=== PATIENT | male | born 1960 | race Caucasian/White ===

== ENCOUNTER 2017-03-13 13:16 | Emergency (ER) | payer SELFPAY ==
[~2017-03-13] VITALS: Ht 172.7 cm; Wt 93.2 kg
[2017-03-13] MEDS ORDERED: METF500T13 (13:32)
[2017-03-13] MEDS ORDERED: PRED20TA PO (14:35)
[2017-03-13] MEDS ORDERED: TRIA1OI TOP (14:35)
[2017-03-13 14:47] VITALS: BP 140/90
== END 2017-03-13 14:47 | disposition home or self-care (01) ==
LOC: M ED 13:16
DX: L30.1 Dyshidrosis [pompholyx] (principal); E11.9 Type 2 diabetes mellitus without complications; F17.200 Nicotine dependence, unspecified, uncomplicated; Z88.0 Allergy status to penicillin; Z79.84 Long term (current) use of oral hypoglycemic drugs

== ENCOUNTER 2017-11-11 12:55 | Emergency (ER) | payer OTHER, SELFPAY | END 2017-11-11 14:25 | disposition left against medical advice (07) | LOC: M ED 12:55 | DX: Z53.21 Procedure and treatment not carried out due to patient leaving prior to being seen by health care provider (principal) ==

== ENCOUNTER 2017-11-12 12:29 | Emergency (ER) | payer OTHER | END 2017-11-12 12:59 | disposition home or self-care (01) | LOC: M ED 12:29 | DX: E11.9 Type 2 diabetes mellitus without complications (principal); F17.200 Nicotine dependence, unspecified, uncomplicated; Z79.84 Long term (current) use of oral hypoglycemic drugs; Z88.0 Allergy status to penicillin | CPT/HCPCS: 99282 ==

== ENCOUNTER → 2017-12-01 | Outpatient (REF) | payer OTHER ==
[2017-12-01 12:02] LABS: BASO % 0.3 % (0.0-1.0); EOS # 0.1 10^3/uL (0.0-0.50); EOS % 1.9 % (0.0-3.0); HEMOGLOBIN 14.7 g/dl (13.5-17.5); IMMATURE GRANULOCYTE % 0.2 % (0-3.0); LYMPH # 1.5 10^3/uL (1.5-4.5); MEAN CORPUSCULAR HEMOGLOBIN 29.9 pg (27.0-33.0); MEAN CORPUSCULAR HGB CONC 33.4 g/dl (32.0-36.5); MEAN CORPUSCULAR VOLUME 89.4 fl (80.0-96.0); MONO # 0.5 10^3/uL (0.0-0.8); NEUTROPHILS # 3.7 10^3/uL (1.8-7.7); NEUTROPHILS % 63.6 % (36.0-66.0); PLATELET COUNT, AUTOMATED 151 10^3/uL (150-450); RED BLOOD COUNT 4.92 10^6/uL (4.30-6.10); RED CELL DISTRIBUTION WIDTH 13.4 % (11.5-14.5); WHITE BLOOD COUNT 5.9 10^3/uL (4.0-10.0)
[2017-12-01 12:22] LABS: ESTIMATED AVERAGE GLUCOSE 137 MG/DL (60-110); HEMOGLOBIN A1c 6.4 %
[2017-12-01 13:02] LABS: ALBUMIN/GLOBULIN RATIO 1.25 (1.00-1.93); ALKALINE PHOSPHATASE 97 U/L (45-117); ALT/SGPT 32 U/L (12-78); ANION GAP 7 MEQ/L (8-16); AST/SGOT 27 U/L (7-37); BILIRUBIN,TOTAL 0.9 MG/DL (0.2-1.0); BLOOD UREA NITROGEN 28 MG/DL (7-18); CALCIUM LEVEL 8.4 MG/DL (8.5-10.1); CARBON DIOXIDE LEVEL 24 MEQ/L (21-32); CHLORIDE LEVEL 109 MEQ/L (98-107); CHOLESTEROL LEVEL 193 MG/DL (<200); CHOLESTEROL RISK RATIO 2.412 (<5); CREATININE FOR GFR 0.89 MG/DL (0.70-1.30); GLOMERULAR FILTRATION RATE > 60.0 (>56); GLUCOSE, FASTING 119 MG/DL (70-100); HDL CHOLESTEROL 80 MG/DL (>40); LDL CHOLESTEROL 87.2 MG/DL (<100); NON-HDL-C 113 MG/DL; POTASSIUM SERUM 4.3 MEQ/L (3.5-5.1); PSA SCREENING 0.63 NG/ML (< 4.0); SODIUM LEVEL 140 MEQ/L (136-145); TOTAL PROTEIN 7.2 GM/DL (6.4-8.2); TRIGLYCERIDES LEVEL 129 MG/DL (<150)
[2017-12-01 13:12] LABS: MAU/CREAT RATIO 107.1 MCG/MG (0.0-30.0)
== END ==
LOC: M SFHCPLAZ 10:02
DX: Z13.220 Encounter for screening for lipoid disorders (principal); E11.9 Type 2 diabetes mellitus without complications; Z12.5 Encounter for screening for malignant neoplasm of prostate

== ENCOUNTER 2018-03-22 14:49 | Emergency (ER) | payer OTHER ==
[2018-03-23 11:53] LABS: BEDSIDE GLUCOSE 102 MG/DL (70-105)
== END 2018-03-22 17:17 | disposition home or self-care (01) ==
LOC: M ED 14:49
DX: L03.031 Cellulitis of right toe (principal); E11.9 Type 2 diabetes mellitus without complications; F17.200 Nicotine dependence, unspecified, uncomplicated
CPT/HCPCS: 99283

== ENCOUNTER 2018-04-12 22:04 | Emergency (ER) | payer OTHER ==
[2018-04-12 23:08] LABS: BASO % 0.2 % (0.0-1.0); EOS # 0.1 10^3/uL (0.0-0.50); EOS % 1.1 % (0.0-3.0); HEMATOCRIT 42.1 % (42.0-52.0); HEMOGLOBIN 14.3 g/dl (13.5-17.5); IMMATURE GRANULOCYTE % 0.2 % (0-3.0); LYMPH # 2.3 10^3/uL (1.5-4.5); LYMPH % 27.6 % (24.0-44.0); MEAN CORPUSCULAR HEMOGLOBIN 30.3 pg (27.0-33.0); MEAN CORPUSCULAR VOLUME 89.2 fl (80.0-96.0); MONO # 0.7 10^3/uL (0.0-0.8); MONO % 8.4 % (0.0-5.0); NEUTROPHILS # 5.3 10^3/uL (1.8-7.7); NEUTROPHILS % 62.5 % (36.0-66.0); PLATELET COUNT, AUTOMATED 184 10^3/uL (150-450); RED BLOOD COUNT 4.72 10^6/uL (4.30-6.10); WHITE BLOOD COUNT 8.4 10^3/uL (4.0-10.0)
[2018-04-12 23:25] LABS: ALBUMIN 3.9 GM/DL (3.2-5.2); ALBUMIN/GLOBULIN RATIO 1.18 (1.00-1.93); ALKALINE PHOSPHATASE 91 U/L (45-117); ALT/SGPT 30 U/L (12-78); ANION GAP 10 MEQ/L (8-16); AST/SGOT 23 U/L (7-37); BILIRUBIN,DIRECT 0.2 MG/DL (0.0-0.2); BILIRUBIN,TOTAL 0.9 MG/DL (0.2-1.0); BLOOD UREA NITROGEN 24 MG/DL (7-18); CALCIUM LEVEL 9.1 MG/DL (8.5-10.1); CARBON DIOXIDE LEVEL 23 MEQ/L (21-32); CHLORIDE LEVEL 108 MEQ/L (98-107); CREATININE FOR GFR 1.07 MG/DL (0.70-1.30); GLOMERULAR FILTRATION RATE > 60.0 (>56); GLUCOSE, FASTING 131 MG/DL (70-100); NT-PRO BNP 183 PG/ML (<125); POTASSIUM SERUM 3.9 MEQ/L (3.5-5.1); SODIUM LEVEL 141 MEQ/L (136-145); TOTAL PROTEIN 7.2 GM/DL (6.4-8.2)
== END 2018-04-13 00:27 | disposition home or self-care (01) ==
LOC: M ED 04-13 00:27
DX: R60.0 Localized edema (principal); I87.2 Venous insufficiency (chronic) (peripheral); D86.9 Sarcoidosis, unspecified; Z87.442 Personal history of urinary calculi; E11.9 Type 2 diabetes mellitus without complications; Z79.899 Other long term (current) drug therapy; Z79.84 Long term (current) use of oral hypoglycemic drugs; Z88.0 Allergy status to penicillin
CPT/HCPCS: 71045

== ENCOUNTER → 2018-04-20 | Outpatient (REF) | payer OTHER ==
[2018-04-20 14:00] LABS: CREATININE, URINE 52.2 MG/DL; MALB URINE SIEMENS 40.6 MG/L; MAU/CREAT RATIO 77.8 MCG/MG (0.0-30.0)
[2018-04-20 14:11] LABS: ESTIMATED AVERAGE GLUCOSE 120 MG/DL (60-110); HEMOGLOBIN A1c 5.8 %
== END ==
LOC: M LABDRAWP 12:14
DX: E11.9 Type 2 diabetes mellitus without complications (principal)

== ENCOUNTER → 2018-08-07 | Outpatient (REF) | payer OTHER ==
[~2018-08-07] MED LIST: DOXY100C37 PO; HYDR25TAB PO; METF500T13 PO; NAPR-50 PO; PRED20TA PO; TRIA1OI TOP
[2018-08-07 13:42] LABS: HEMOGLOBIN A1c 6.2 %
== END ==
LOC: M SFHCPLAZ 10:23
PROVIDERS: ATTEND Physician Assistant
DX: E11.9 Type 2 diabetes mellitus without complications (principal)

== ENCOUNTER 2018-09-06 09:45 | Emergency (ER) | payer OTHER ==
[~2018-09-06] VITALS: Ht 172.7 cm; Wt 100.0 kg
[2018-09-06 09:45] VITALS: BP 184/92
[2018-09-06] MEDS ORDERED: ERYTOIN8 OS (10:17)
== END 2018-09-06 10:31 | disposition home or self-care (01) ==
LOC: M ED 09:45
DX: H01.004 Unspecified blepharitis left upper eyelid (principal); Z72.0 Tobacco use; D86.9 Sarcoidosis, unspecified; Z87.442 Personal history of urinary calculi; Z87.440 Personal history of urinary (tract) infections; E11.9 Type 2 diabetes mellitus without complications; Z79.84 Long term (current) use of oral hypoglycemic drugs; Z79.899 Other long term (current) drug therapy; Z88.0 Allergy status to penicillin

== ENCOUNTER 2018-11-16 21:54 | Emergency (ER) | payer OTHER ==
[~2018-11-16] VITALS: Ht 172.7 cm; Wt 100.0 kg
[~2018-11-16 21:54] MED LIST changes: +ERYTOIN8 OS; -NAPR-50 PO; +NAPR-837 PO
[2018-11-16 21:55] VITALS: BP 160/86
[2018-11-16] MEDS ORDERED: [UNRECOGNIZED DRUG - CODE] PO (22:07)
[2018-11-16] MEDS ORDERED: LOSA25TA14 (22:07)
[2018-11-16] MEDS ORDERED: LEVALBUTEROL 1.25 MG/0.5 ML CONCENTRATE NEB NEB ONE (23:00)
[2018-11-16] MEDS ORDERED: DOXYCYCLINE HYCLATE 100 MG TAB PO ONE (23:00)
[2018-11-16] MEDS ORDERED: DOXY100C37 PO (23:39)
[2018-11-16] MEDS ORDERED: LEVAINH INH (23:39)
--- NOTE | 2018-11-17 00:41 | REP ---
Clinical: Wheezing . Comparison: 04/12/2018 . Technique: PA and lateral. Findings: The mediastinum and cardiac silhouette are normal. The lung ryan are clear and without acute consolidation, effusion, or pneumothorax. The skeletal structures are intact and normal. Impression: 1. No acute cardiopulmonary process. Electronically Signed by Mani Schaffer MD 11/17/2018 12:32 A
== END 2018-11-16 23:59 | disposition home or self-care (01) ==
LOC: M ED 21:54
DX: J01.90 Acute sinusitis, unspecified (principal); D86.0 Sarcoidosis of lung; E11.9 Type 2 diabetes mellitus without complications; Z88.0 Allergy status to penicillin; Z87.442 Personal history of urinary calculi; Z79.84 Long term (current) use of oral hypoglycemic drugs; Z79.899 Other long term (current) drug therapy

== ENCOUNTER → 2019-04-26 | Outpatient (CLI) | payer OTHER ==
[~2019-04-26] MED LIST changes: +LEVAINH INH; +LOSA25TA14; +[UNRECOGNIZED DRUG - CODE] PO
--- NOTE | 2019-04-26 19:21 | REP ---
Chest x-ray: Two views. History: Hypoxia. Comparison chest x-ray: November 16, 2018. Findings: The lungs are symmetrically aerated and clear. Pleural angles are sharp. There are degenerative changes in the thoracic spine. Heart size is normal. Impression: No active disease. Electronically Signed by Joe Ojeda MD 04/26/2019 07:37 P
== END ==
LOC: M RAD 16:58
PROVIDERS: ATTEND Family Medicine
DX: R09.02 Hypoxemia (principal); M51.34 Other intervertebral disc degeneration, thoracic region

== ENCOUNTER → 2019-07-02 | Outpatient (REF) | payer OTHER ==
[2019-07-02 14:11] LABS: HEMOGLOBIN A1c 6.4 %
[2019-07-02 14:34] LABS: BLOOD UREA NITROGEN 18 MG/DL (7-18); CALCIUM LEVEL 8.7 MG/DL (8.5-10.1); CARBON DIOXIDE LEVEL 28 MEQ/L (21-32); CHLORIDE LEVEL 104 MEQ/L (98-107); CHOLESTEROL LEVEL 203 MG/DL (<200); CHOLESTEROL RISK RATIO 2.388 (<5); CREATININE FOR GFR 0.98 MG/DL (0.70-1.30); GLOMERULAR FILTRATION RATE > 60.0 (>56); GLUCOSE, FASTING 108 MG/DL (70-100); HDL CHOLESTEROL 85 MG/DL (>40); LDL CHOLESTEROL 90 MG/DL (<100); NON-HDL-C 118 MG/DL; POTASSIUM SERUM 4.2 MEQ/L (3.5-5.1); SODIUM LEVEL 139 MEQ/L (136-145); TRIGLYCERIDES LEVEL 140 MG/DL (<150)
== END ==
LOC: M SFHCPLAZ 11:33
PROVIDERS: ATTEND Physician Assistant
DX: E11.42 Type 2 diabetes mellitus with diabetic polyneuropathy (principal)

== ENCOUNTER → 2019-08-24 | Outpatient (CLI) | payer OTHER ==
--- NOTE | 2019-08-25 04:53 | REP ---
Clinical: History of left-sided nephroliths. Technique: Real time omra scale ultrasound examination using curved array transducer. Findings: The bilateral kidneys are normal in contour, size, echogenicity, and reniform shape without hydronephrosis, nephrolithiasis, or renal mass lesion. Right kidney measures 12.9 x 5.1 x 5.9 cm. Left kidney measures 13.0 x 5.8 x 7.1 cm and includes 4.4 cm lower pole exophytic simple cyst. Bladder is unremarkable and bilateral ureteral jets are identified. Impression: 1. 4.4 cm simple exophytic left renal cyst. 2. No obvious nephrolithiasis or hydronephrosis. Electronically Signed by Mani Schaffer MD 08/25/2019 04:45 A
== END ==
LOC: M RAD 12:58
PROVIDERS: ATTEND Physician Assistant
DX: N20.0 Calculus of kidney (principal)

== ENCOUNTER → 2020-07-11 | Outpatient (REF) | payer OTHER ==
[2020-07-11 12:53] LABS: BLOOD UREA NITROGEN 18 MG/DL (7-18); CALCIUM LEVEL 8.9 MG/DL (8.5-10.1); CARBON DIOXIDE LEVEL 29 MEQ/L (21-32); CHLORIDE LEVEL 107 MEQ/L (98-107); CHOLESTEROL LEVEL 221 MG/DL (<200); CHOLESTEROL RISK RATIO 2.762 (<5); CREATININE FOR GFR 0.98 MG/DL (0.70-1.30); GLOMERULAR FILTRATION RATE > 60.0 (>56); GLUCOSE, FASTING 133 MG/DL (70-100); HDL CHOLESTEROL 80 MG/DL (>40); LDL CHOLESTEROL 115 MG/DL (<100); NON-HDL-C 141 MG/DL; POTASSIUM SERUM 4.2 MEQ/L (3.5-5.1); SODIUM LEVEL 140 MEQ/L (136-145); TRIGLYCERIDES LEVEL 130 MG/DL (<150); URIC ACID 3.4 MG/DL (3.5-7.2)
[2020-07-11 15:35] LABS: HEMOGLOBIN A1c 6.2 %
== END ==
LOC: M SFHCPLAZ 09:35
PROVIDERS: ATTEND Physician Assistant
DX: E11.42 Type 2 diabetes mellitus with diabetic polyneuropathy (principal); Z87.442 Personal history of urinary calculi

== ENCOUNTER → 2021-06-21 | Outpatient (CLI) | payer OTHER ==
[~2021-06-21] MED LIST changes: +DOXY-443 PO; -DOXY100C37 PO; +HYDR-3490 PO; -HYDR25TAB PO; +LOSA25TA13; -LOSA25TA14
[2021-06-21 13:38] LABS: BASO % 0.4 % (0.0-1.0); EOS # 0.1 10^3/uL (0.0-0.5); EOS % 1.3 % (0.0-3.0); HEMATOCRIT 46.4 % (42.0-52.0); HEMOGLOBIN 15.1 g/dl (13.5-17.5); LYMPH # 1.6 10^3/uL (1.5-5.0); LYMPH % 29.7 % (24.0-44.0); MEAN CORPUSCULAR HEMOGLOBIN 29.8 pg (27.0-33.0); MEAN CORPUSCULAR HGB CONC 32.5 g/dl (32.0-36.5); MEAN CORPUSCULAR VOLUME 91.7 fl (80.0-96.0); MONO # 0.5 10^3/uL (0.0-0.8); MONO % 8.6 % (2.0-8.0); NEUTROPHILS # 3.2 10^3/uL (1.5-8.5); NEUTROPHILS % 59.6 % (36.0-66.0); PLATELET COUNT, AUTOMATED 173 10^3/uL (150-450); RED BLOOD COUNT 5.06 10^6/uL (4.30-6.10); WHITE BLOOD COUNT 5.3 10^3/uL (4.0-10.0)
[2021-06-21 13:53] LABS: HEMOGLOBIN A1c 6.2 %
[2021-06-21 14:16] LABS: ALT/SGPT 29 U/L (12-78); BILIRUBIN,TOTAL 0.9 MG/DL (0.2-1.0); BLOOD UREA NITROGEN 18 MG/DL (7-18); CALCIUM LEVEL 8.9 MG/DL (8.5-10.1); CARBON DIOXIDE LEVEL 27 MEQ/L (21-32); CHLORIDE LEVEL 108 MEQ/L (98-107); CHOLESTEROL LEVEL 220 MG/DL (<200); CREATININE FOR GFR 0.89 MG/DL (0.70-1.30); GLOMERULAR FILTRATION RATE > 60.0 (>56); GLUCOSE, FASTING 130 MG/DL (70-100); HDL CHOLESTEROL 80 MG/DL (>40); LDL CHOLESTEROL 109 MG/DL (<100); NON-HDL-C 140 MG/DL; POTASSIUM SERUM 4.4 MEQ/L (3.5-5.1); SODIUM LEVEL 140 MEQ/L (136-145); TRIGLYCERIDES LEVEL 153 MG/DL (<150)
[2021-06-21 14:17] LABS: ALBUMIN 3.7 GM/DL (3.2-5.2); FREE T4 1.32 NG/DL (0.76-1.46); NT-PRO BNP 76 PG/ML (<125); TOTAL PROTEIN 6.6 GM/DL (6.4-8.2); URIC ACID 3.9 MG/DL (3.5-7.2)
[2021-06-21 14:18] LABS: TOTAL 25(OH) VITAMIN D 12.4 NG/ML (30.0-100.0)
[2021-06-21 14:19] LABS: PTH INTACT 31.4 PG/ML (18.5-88.0)
== END ==
LOC: M PLALAB 09:04
PROVIDERS: ATTEND Family Medicine
DX: E11.9 Type 2 diabetes mellitus without complications (principal)

== ENCOUNTER → 2021-06-21 | Outpatient (CLI) | payer OTHER ==
[2021-06-21 13:52] LABS: HEMOGLOBIN A1c 6.2 %
[2021-06-21 14:05] LABS: BLOOD UREA NITROGEN 17 MG/DL (7-18); CALCIUM LEVEL 8.9 MG/DL (8.5-10.1); CARBON DIOXIDE LEVEL 27 MEQ/L (21-32); CHLORIDE LEVEL 108 MEQ/L (98-107); CREATININE FOR GFR 0.93 MG/DL (0.70-1.30); GLOMERULAR FILTRATION RATE > 60.0 (>56); GLUCOSE, FASTING 133 MG/DL (70-100); POTASSIUM SERUM 4.4 MEQ/L (3.5-5.1); SODIUM LEVEL 140 MEQ/L (136-145)
== END ==
LOC: M PLALAB 08:45
PROVIDERS: ATTEND Physician Assistant
DX: E11.9 Type 2 diabetes mellitus without complications (principal)

== ENCOUNTER → 2022-02-08 | Outpatient (CLI) | payer OTHER ==
[2022-02-08 14:16] LABS: BASO % 0.5 % (0.0-1.0); EOS # 0.1 10^3/uL (0.0-0.5); EOS % 1.5 % (0.0-3.0); HEMATOCRIT 44.8 % (42.0-52.0); HEMOGLOBIN 14.8 g/dl (13.5-17.5); LYMPH % 29.6 % (24.0-44.0); MEAN CORPUSCULAR HEMOGLOBIN 30.6 pg (27.0-33.0); MEAN CORPUSCULAR VOLUME 92.6 fl (80.0-96.0); MONO # 0.5 10^3/uL (0.0-0.8); MONO % 7.3 % (2.0-8.0); NEUTROPHILS % 60.6 % (36.0-66.0); PLATELET COUNT, AUTOMATED 193 10^3/uL (150-450); RED BLOOD COUNT 4.84 10^6/uL (4.30-6.10); WHITE BLOOD COUNT 6.6 10^3/uL (4.0-10.0)
[2022-02-08 17:34] LABS: ALBUMIN 3.8 GM/DL (3.2-5.2); ALT/SGPT 27 U/L (12-78); BILIRUBIN,TOTAL 0.7 MG/DL (0.2-1.0); BLOOD UREA NITROGEN 17 MG/DL (7-18); CALCIUM LEVEL 9.5 MG/DL (8.5-10.1); CARBON DIOXIDE LEVEL 28 MEQ/L (21-32); CHLORIDE LEVEL 109 MEQ/L (98-107); CHOLESTEROL LEVEL 223 MG/DL (<200); CHOLESTEROL RISK RATIO 2.423 (<5); CREATININE FOR GFR 1.04 MG/DL (0.70-1.30); GLOMERULAR FILTRATION RATE > 60.0 (>56); GLUCOSE, FASTING 137 MG/DL (70-100); HDL CHOLESTEROL 92 MG/DL (>40); LDL CHOLESTEROL 104 MG/DL (<100); NON-HDL-C 131 MG/DL; POTASSIUM SERUM 4.8 MEQ/L (3.5-5.1); SODIUM LEVEL 141 MEQ/L (136-145); TOTAL PROTEIN 6.9 GM/DL (6.4-8.2); TRIGLYCERIDES LEVEL 135 MG/DL (<150)
[2022-02-08 17:37] LABS: HEMOGLOBIN A1c 6.1 %
== END ==
LOC: M PLALAB 10:49
PROVIDERS: ATTEND Nurse Practitioner Family
DX: E78.5 Hyperlipidemia, unspecified (principal); E11.9 Type 2 diabetes mellitus without complications; I10 Essential (primary) hypertension; E55.9 Vitamin D deficiency, unspecified

== ENCOUNTER → 2022-02-20 | Outpatient (CLI) | payer OTHER ==
[2022-02-20 14:15] LABS: APPEARANCE, URINE CLEAR (CLEAR); BACTERIA, URINE AUTO NEGATIVE (NEGATIVE); BILIRUBIN, URINE AUTO NEGATIVE (NEGATIVE); BLOOD, URINE BLOOD NEGATIVE (NEGATIVE); COLOR, URINE YELLOW (YELLOW); GLUCOSE, URINE (UA) AUTO 3+ mg/dL (NEGATIVE); KETONE, URINE AUTO NEGATIVE (NEGATIVE); LEUKOCYTE ESTERASE, URINE AUTO NEGATIVE (NEGATIVE); MUCUS, URINE SMALL (NEGATIVE); NITRITE, URINE AUTO NEGATIVE (NEGATIVE); PROTEIN, URINE AUTO 1+ mg/dL (NEGATIVE); RBC, URINE AUTO 1 /HPF (0-3); SQUAMOUS EPITHELIAL CELL UR AU 0 /HPF (0-6); UROBILINOGEN, URINE AUTO 0.2 mg/dL (0.0-2.0); WBC, URINE AUTO 0 /HPF (0-3)
== END ==
LOC: M PLAIMG 11:23
PROVIDERS: ATTEND Physician Assistant
DX: N20.1 Calculus of ureter (principal)

== ENCOUNTER → 2022-02-22 | Outpatient (CLI) | payer OTHER ==
[2022-02-22 11:37] LABS: BASO % 0.4 % (0.0-1.0); EOS # 0.1 10^3/uL (0.0-0.5); EOS % 1.2 % (0.0-3.0); HEMATOCRIT 45.5 % (42.0-52.0); HEMOGLOBIN 14.8 g/dl (13.5-17.5); LYMPH # 1.4 10^3/uL (1.5-5.0); LYMPH % 28.3 % (24.0-44.0); MEAN CORPUSCULAR HEMOGLOBIN 30.2 pg (27.0-33.0); MEAN CORPUSCULAR HGB CONC 32.5 g/dl (32.0-36.5); MEAN CORPUSCULAR VOLUME 92.9 fl (80.0-96.0); MONO # 0.4 10^3/uL (0.0-0.8); MONO % 7.4 % (2.0-8.0); NEUTROPHILS # 3.1 10^3/uL (1.5-8.5); NEUTROPHILS % 62.5 % (36.0-66.0); PLATELET COUNT, AUTOMATED 147 10^3/uL (150-450)
[2022-02-22 12:03] LABS: INR 0.94
[2022-02-22 12:04] LABS: PARTIAL THROMBOPLASTIN TIME 31.8 SECONDS (25.9-37.0)
[2022-02-22 12:07] LABS: ALBUMIN 3.5 GM/DL (3.2-5.2); ALT/SGPT 26 U/L (12-78); BILIRUBIN,TOTAL 1.1 MG/DL (0.2-1.0); BLOOD UREA NITROGEN 20 MG/DL (7-18); CALCIUM LEVEL 8.9 MG/DL (8.5-10.1); CARBON DIOXIDE LEVEL 30 MEQ/L (21-32); CHLORIDE LEVEL 105 MEQ/L (98-107); CREATININE FOR GFR 0.91 MG/DL (0.70-1.30); GLOMERULAR FILTRATION RATE > 60.0 (>56); GLUCOSE, FASTING 128 MG/DL (70-100); NT-PRO BNP 131 PG/ML (<125); SODIUM LEVEL 140 MEQ/L (136-145); TOTAL PROTEIN 6.8 GM/DL (6.4-8.2)
== END ==
LOC: M PLALAB 08:55
PROVIDERS: ATTEND Family Medicine
DX: I10 Essential (primary) hypertension (principal); E11.9 Type 2 diabetes mellitus without complications

== ENCOUNTER → 2022-02-24 | Outpatient (CLI) | payer OTHER | LOC: M LABSMTC 10:20 | PROVIDERS: ATTEND Anesthesiology | DX: Z01.818 Encounter for other preprocedural examination (principal); Z11.52 Encounter for screening for COVID-19 ==

== ENCOUNTER 2022-03-01 07:05 | Day surgery (SDC) | payer OTHER ==
[~2022-03-01] VITALS: Ht 172.7 cm; Wt 105.7 kg
[2022-03-01] MEDS ORDERED: LR 1,000 ML IV SCH (07:35)
[2022-03-01] MEDS ORDERED: propofoL 200 MG/20 ML VIAL As Ordered ONE (08:29)
[2022-03-01] MEDS ORDERED: LIDOCAINE 2% 100MG/5ML SDV (FOR ANES.) As Ordered ONE (08:29)
[2022-03-01] MEDS ORDERED: fentaNYL 100 MCG/2 ML INJECTION As Ordered ONE (08:30)
[2022-03-01] MEDS ORDERED: MIDAZOLAM INJ 2MG/2ML VIAL (J2250 PER 1MG) As Ordered ONE (08:30)
[2022-03-01] MEDS ORDERED: ONDANSETRON 4MG 2ML VIAL As Ordered ONE (08:32)
[2022-03-01] MEDS ORDERED: dexameTHASONE 4 MG/ML 1ML VIAL (J1100 PER 1MG) As Ordered ONE (08:32)
[2022-03-01] MEDS ORDERED: ceFAZolin SOD 2 GM in IV 1 EA IV ONE (08:50)
[2022-03-01] MEDS ORDERED: ISOVUE-300 61% 50ML VIAL As Ordered ONE (09:02)
[2022-03-01] MEDS ORDERED: ePHEDrine SULFATE 25 MG/5 ML(5MG/ML) SYRINGE As Ordered ONE (09:51)
[2022-03-01] MEDS ORDERED: VALI5TAB PO (10:42)
[2022-03-01] MEDS ORDERED: PERCOCET 5MG/325MG TAB PO PRN (11:20)
[2022-03-01 12:00] VITALS: BP 142/80
[2022-03-06 14:08] LABS: CA Oxalate Dihy 10 % (.); Ca Ox Monohydrate 90 % (.); Size 5x5 mm (.)
== END 2022-03-01 12:00 | disposition home or self-care (01) ==
LOC: M SDC 07:05
PROVIDERS: ATTEND Urology
DX: N20.2 Calculus of kidney with calculus of ureter (principal); E11.9 Type 2 diabetes mellitus without complications; Z79.84 Long term (current) use of oral hypoglycemic drugs; F17.210 Nicotine dependence, cigarettes, uncomplicated; Z79.899 Other long term (current) drug therapy
CPT/HCPCS: 52332; 52352; 74420; 82365; C1769; C1894; C2617; J0690; J1100; J2250; J2405; J3010; Q9967

== ENCOUNTER → 2022-04-12 | Outpatient (REF) | payer OTHER ==
[~2022-04-12] MED LIST changes: +VALI5TAB PO
[2022-04-12 20:03] LABS: APPEARANCE, URINE MANUAL CLEAR (CLEAR); COLOR, URINE MANUAL YELLOW (YELLOW)
[2022-04-12 20:05] LABS: BILIRUBIN, URINE MANUAL NEGATIVE (NEGATIVE); BLOOD URINE MANUAL NEGATIVE (NEGATIVE); GLUCOSE, URINE (UA) MANUAL 4+(1000 MG/DL) mg/dL (NEGATIVE); KETONE, URINE MANUAL NEGATIVE (NEGATIVE); LEUKOCYTE ESTERASE, URINE MAN NEGATIVE (NEGATIVE); NITRITE, URINE MANUAL NEGATIVE (NEGATIVE); PH,URINE MAN 5.5 UNITS (5.0 - 7.0); PROTEIN, URINE MANUAL NEGATIVE (NEGATIVE); SPECIFIC GRAVITY,URINE MANUAL 1.025 (1.002-1.035); UROBILINOGEN, URINE MANUAL NORMAL (NORMAL)
== END ==
LOC: M SMT 17:08
PROVIDERS: ATTEND Urology
DX: N20.0 Calculus of kidney (principal)

== ENCOUNTER → 2022-04-26 | Outpatient (CLI) | payer OTHER | LOC: M RAD 11:05 | PROVIDERS: ATTEND Urology | DX: N20.0 Calculus of kidney (principal) ==

== ENCOUNTER → 2022-07-11 | Outpatient (CLI) | payer OTHER ==
[2022-07-11 15:24] LABS: BASO % 0.3 % (0.0-1.0); EOS # 0.1 10^3/uL (0.0-0.5); EOS % 0.9 % (0.0-3.0); HEMATOCRIT 49.1 % (42.0-52.0); HEMOGLOBIN 16.1 g/dl (13.5-17.5); LYMPH # 1.6 10^3/uL (1.5-5.0); LYMPH % 24.3 % (24.0-44.0); MEAN CORPUSCULAR HEMOGLOBIN 30.7 pg (27.0-33.0); MEAN CORPUSCULAR HGB CONC 32.8 g/dl (32.0-36.5); MEAN CORPUSCULAR VOLUME 93.7 fl (80.0-96.0); MONO # 0.6 10^3/uL (0.0-0.8); MONO % 8.4 % (2.0-8.0); NEUTROPHILS # 4.4 10^3/uL (1.5-8.5); NEUTROPHILS % 65.8 % (36.0-66.0); PLATELET COUNT, AUTOMATED 163 10^3/uL (150-450); RED BLOOD COUNT 5.24 10^6/uL (4.30-6.10); WHITE BLOOD COUNT 6.7 10^3/uL (4.0-10.0)
[2022-07-11 15:31] LABS: ALBUMIN 3.8 G/DL (3.2-5.2); ALKALINE PHOSPHATASE 84 U/L (46-116); ALT/SGPT 37 U/L (7.0-40); AST/SGOT 22 U/L (<34); BILIRUBIN,TOTAL 1.2 MG/DL (0.3-1.2); BLOOD UREA NITROGEN 20 MG/DL (9-23); CARBON DIOXIDE LEVEL 29 MMOL/L (20-31); CHLORIDE LEVEL 104 MMOL/L (98-107); CHOLESTEROL LEVEL 183 MG/DL (<200); CHOLESTEROL RISK RATIO 2.57 (<5); CREATININE FOR GFR 1.05 MG/DL (0.70-1.30); GLOMERULAR FILTRATION RATE > 60.0 (>49); GLUCOSE, FASTING 151 MG/DL (74-106); NON-HDL-C 112 MG/DL; POTASSIUM SERUM 4.9 MMOL/L (3.5-5.1); SODIUM LEVEL 139 MMOL/L (136-145); TOTAL PROTEIN 6.6 G/DL (5.7-8.2); TRIGLYCERIDES LEVEL 120 MG/DL (<150)
[2022-07-11 15:51] LABS: CREATININE, URINE 145.4 MG/DL
[2022-07-11 15:55] LABS: HEMOGLOBIN A1c 6.1 % (4.0-6.0)
== END ==
LOC: M PLALAB 10:44
PROVIDERS: ATTEND Nurse Practitioner Family
DX: I10 Essential (primary) hypertension (principal); E78.5 Hyperlipidemia, unspecified; E55.9 Vitamin D deficiency, unspecified; E11.9 Type 2 diabetes mellitus without complications

== ENCOUNTER → 2022-08-07 | Outpatient (CLI) | payer OTHER | LOC: M RAD 10:10 | PROVIDERS: ATTEND Nurse Practitioner Family | DX: Z12.2 Encounter for screening for malignant neoplasm of respiratory organs (principal) ==

== ENCOUNTER → 2022-09-27 | Outpatient (CLI) | payer OTHER | LOC: M RAD 13:28 | PROVIDERS: ATTEND Urology | DX: N20.0 Calculus of kidney (principal) ==

== ENCOUNTER → 2023-01-24 | Outpatient (CLI) | payer OTHER ==
[2023-01-24 15:14] LABS: BASO % 0.6 % (0.0-1.0); EOS # 0.1 10^3/uL (0.0-0.5); EOS % 1.3 % (0.0-3.0); HEMATOCRIT 46.7 % (42.0-52.0); HEMOGLOBIN 15.5 g/dl (13.5-17.5); LYMPH # 1.4 10^3/uL (1.5-5.0); LYMPH % 25.9 % (24.0-44.0); MEAN CORPUSCULAR HEMOGLOBIN 31.1 pg (27.0-33.0); MEAN CORPUSCULAR HGB CONC 33.2 g/dl (32.0-36.5); MEAN CORPUSCULAR VOLUME 93.8 fl (80.0-96.0); MONO # 0.4 10^3/uL (0.0-0.8); MONO % 7.8 % (2.0-8.0); NEUTROPHILS # 3.4 10^3/uL (1.5-8.5); NEUTROPHILS % 64.2 % (36.0-66.0); PLATELET COUNT, AUTOMATED 176 10^3/uL (150-450); RED BLOOD COUNT 4.98 10^6/uL (4.30-6.10); WHITE BLOOD COUNT 5.3 10^3/uL (4.0-10.0)
[2023-01-24 15:35] LABS: HEMOGLOBIN A1c 6.4 % (4.0-6.0)
[2023-01-24 15:36] LABS: ALBUMIN 3.7 G/DL (3.2-5.2); ALKALINE PHOSPHATASE 70 U/L (46-116); ALT/SGPT 15 U/L (7.0-40); AST/SGOT 16 U/L (<34); BILIRUBIN,TOTAL 1.4 MG/DL (0.3-1.2); BLOOD UREA NITROGEN 22 MG/DL (9-23); CALCIUM LEVEL 8.7 MG/DL (8.3-10.6); CARBON DIOXIDE LEVEL 27 MMOL/L (20-31); CHLORIDE LEVEL 107 MMOL/L (98-107); CHOLESTEROL LEVEL 204 MG/DL (<200); CHOLESTEROL RISK RATIO 2.74 (<5); CREATININE FOR GFR 0.87 MG/DL (0.70-1.30); GLOMERULAR FILTRATION RATE > 60.0 (>49); GLUCOSE, FASTING 154 MG/DL (74-106); HDL CHOLESTEROL 74.4 MG/DL (>40); LDL CHOLESTEROL 95.8 MG/DL (<100); NON-HDL-C 129.6 MG/DL; POTASSIUM SERUM 4.3 MMOL/L (3.5-5.1); SODIUM LEVEL 139 MMOL/L (136-145); TOTAL PROTEIN 6.3 G/DL (5.7-8.2); TRIGLYCERIDES LEVEL 169 MG/DL (<150)
[2023-01-24 15:39] LABS: TOTAL 25(OH) VITAMIN D 25.3 NG/ML (20.0-100.0)
== END ==
LOC: M PLALAB 08:53
PROVIDERS: ATTEND Nurse Practitioner Family
DX: E11.9 Type 2 diabetes mellitus without complications (principal); E78.5 Hyperlipidemia, unspecified; E55.9 Vitamin D deficiency, unspecified; I10 Essential (primary) hypertension

== ENCOUNTER → 2023-02-24 | Outpatient (CLI) | payer OTHER ==
[2023-02-24 14:07] LABS: CREATININE, URINE 122.5 MG/DL; MAU/CREAT RATIO 23.6 MCG/MG (0.0-30.0)
== END ==
LOC: M PLALAB 10:30
PROVIDERS: ATTEND Nurse Practitioner Family
DX: E11.9 Type 2 diabetes mellitus without complications (principal)

== ENCOUNTER → 2023-02-24 | Outpatient (CLI) | payer OTHER ==
[2023-02-24 13:32] LABS: APPEARANCE, URINE CLEAR (CLEAR); BACTERIA, URINE AUTO NEGATIVE (NEGATIVE); BILIRUBIN, URINE AUTO NEGATIVE (NEGATIVE); BLOOD, URINE BLOOD NEGATIVE (NEGATIVE); COLOR, URINE YELLOW (YELLOW); GLUCOSE, URINE (UA) AUTO 1+ mg/dL (NEGATIVE); KETONE, URINE AUTO TRACE mg/dL (NEGATIVE); LEUKOCYTE ESTERASE, URINE AUTO NEGATIVE (NEGATIVE); MUCUS, URINE SMALL (NEGATIVE); NITRITE, URINE AUTO NEGATIVE (NEGATIVE); PROTEIN, URINE AUTO NEGATIVE (NEGATIVE); RBC, URINE AUTO 0 /HPF (0-3); SPECIFIC GRAVITY URINE AUTO 1.018 (1.002-1.035); SQUAMOUS EPITHELIAL CELL UR AU 0 /HPF (0-6); UROBILINOGEN, URINE AUTO 0.2 mg/dL (0.0-2.0); WBC, URINE AUTO 1 /HPF (0-3)
== END ==
LOC: M PLAIMG 10:33
PROVIDERS: ATTEND Urology
DX: N20.0 Calculus of kidney (principal)

== ENCOUNTER → 2023-08-19 | Outpatient (CLI) | payer OTHER ==
[2023-08-19 11:45] LABS: BASO % 0.3 % (0.0-1.0); EOS # 0.1 10^3/uL (0.0-0.5); EOS % 1.7 % (0.0-3.0); HEMATOCRIT 47.8 % (42.0-52.0); HEMOGLOBIN 15.7 g/dl (13.5-17.5); LYMPH # 1.6 10^3/uL (1.5-5.0); LYMPH % 27.9 % (24.0-44.0); MEAN CORPUSCULAR HEMOGLOBIN 30.4 pg (27.0-33.0); MEAN CORPUSCULAR HGB CONC 32.8 g/dl (32.0-36.5); MEAN CORPUSCULAR VOLUME 92.6 fl (80.0-96.0); MONO # 0.5 10^3/uL (0.0-0.8); MONO % 8.1 % (2.0-8.0); NEUTROPHILS # 3.6 10^3/uL (1.5-8.5); NEUTROPHILS % 61.7 % (36.0-66.0); PLATELET COUNT, AUTOMATED 175 10^3/uL (150-450); RED BLOOD COUNT 5.16 10^6/uL (4.30-6.10); WHITE BLOOD COUNT 5.8 10^3/uL (4.0-10.0)
[2023-08-19 11:47] LABS: APPEARANCE, URINE CLEAR (CLEAR); BACTERIA, URINE AUTO NEGATIVE (NEGATIVE); BILIRUBIN, URINE AUTO NEGATIVE (NEGATIVE); BLOOD, URINE BLOOD NEGATIVE (NEGATIVE); COLOR, URINE YELLOW (YELLOW); GLUCOSE, URINE (UA) AUTO 1+ mg/dL (NEGATIVE); KETONE, URINE AUTO NEGATIVE (NEGATIVE); LEUKOCYTE ESTERASE, URINE AUTO NEGATIVE (NEGATIVE); MUCUS, URINE SMALL (NEGATIVE); NITRITE, URINE AUTO NEGATIVE (NEGATIVE); PROTEIN, URINE AUTO NEGATIVE (NEGATIVE); RBC, URINE AUTO 0 /HPF (0-3); SPECIFIC GRAVITY URINE AUTO 1.023 (1.002-1.035); SQUAMOUS EPITHELIAL CELL UR AU 0 /HPF (0-6); UROBILINOGEN, URINE AUTO 0.2 mg/dL (0.0-2.0); WBC, URINE AUTO 1 /HPF (0-3)
[2023-08-19 12:10] LABS: HEMOGLOBIN A1c 6.7 % (4.0-6.0)
[2023-08-19 12:16] LABS: ALBUMIN 3.7 G/DL (3.2-5.2); ALKALINE PHOSPHATASE 92 U/L (46-116); ALT/SGPT 28 U/L (7.0-40); AST/SGOT 15 U/L (<34); BILIRUBIN,TOTAL 1.3 MG/DL (0.3-1.2); BLOOD UREA NITROGEN 16 MG/DL (9-23); CALCIUM LEVEL 8.8 MG/DL (8.3-10.6); CARBON DIOXIDE LEVEL 29 MMOL/L (20-31); CHLORIDE LEVEL 103 MMOL/L (98-107); CHOLESTEROL LEVEL 203 MG/DL (<200); CHOLESTEROL RISK RATIO 2.61 (<5); GLOMERULAR FILTRATION RATE > 60.0 (>49); GLUCOSE, FASTING 150 MG/DL (74-106); HDL CHOLESTEROL 77.7 MG/DL (>40); LDL CHOLESTEROL 94.5 MG/DL (<100); NON-HDL-C 125.3 MG/DL; POTASSIUM SERUM 4.8 MMOL/L (3.5-5.1); SODIUM LEVEL 137 MMOL/L (136-145); TOTAL 25(OH) VITAMIN D 30.2 NG/ML (20.0-100.0); TRIGLYCERIDES LEVEL 154 MG/DL (<150)
[2023-08-19 12:23] LABS: CREATININE, URINE 152.5 MG/DL; MAU/CREAT RATIO 26.2 MCG/MG (0.0-30.0)
== END ==
LOC: M PLALAB 08:28
PROVIDERS: ATTEND Nurse Practitioner Family
DX: E11.9 Type 2 diabetes mellitus without complications (principal)

== ENCOUNTER → 2023-08-21 | Outpatient (CLI) | payer OTHER | LOC: M PLAIMG 12:54 | PROVIDERS: ATTEND Urology | DX: N20.0 Calculus of kidney (principal) ==

== ENCOUNTER → 2023-08-28 | Outpatient (CLI) | payer OTHER | LOC: M WHC 14:01 | PROVIDERS: ATTEND Nurse Practitioner Family | DX: N28.1 Cyst of kidney, acquired (principal) ==

== ENCOUNTER → 2024-08-27 | Outpatient (CLI) | payer OTHER ==
[~2024-08-27] MED LIST changes: +DOXY-441 PO; -DOXY-443 PO; +LEVA15HF2 INH; -LEVAINH INH
[2024-08-27 16:16] LABS: BASO % 0.5 % (0.0-1.0); EOS # 0.1 10^3/uL (0.0-0.5); EOS % 2.2 % (0.0-3.0); HEMATOCRIT 46.8 % (42.0-52.0); HEMOGLOBIN 15.5 g/dl (13.5-17.5); LYMPH # 1.6 10^3/uL (1.5-5.0); LYMPH % 24.6 % (24.0-44.0); MEAN CORPUSCULAR HEMOGLOBIN 30.6 pg (27.0-33.0); MEAN CORPUSCULAR HGB CONC 33.1 g/dl (32.0-36.5); MEAN CORPUSCULAR VOLUME 92.5 fl (80.0-96.0); MONO # 0.5 10^3/uL (0.0-0.8); MONO % 7.3 % (2.0-8.0); NEUTROPHILS # 4.2 10^3/uL (1.5-8.5); NEUTROPHILS % 65.1 % (36.0-66.0); PLATELET COUNT, AUTOMATED 194 10^3/uL (150-450); RED BLOOD COUNT 5.06 10^6/uL (4.30-6.10); WHITE BLOOD COUNT 6.4 10^3/uL (4.0-10.0)
[2024-08-27 16:26] LABS: ALBUMIN 3.7 G/DL (3.2-5.2); ALKALINE PHOSPHATASE 95 U/L (40-129); ALT/SGPT 27 U/L (7.0-40); AST/SGOT 18 U/L (<34); BILIRUBIN,TOTAL 1.1 MG/DL (0.3-1.2); BLOOD UREA NITROGEN 23 MG/DL (9-23); CALCIUM LEVEL 8.9 MG/DL (8.3-10.6); CARBON DIOXIDE LEVEL 27 MMOL/L (20-31); CHLORIDE LEVEL 107 MMOL/L (98-107); CHOLESTEROL LEVEL 199 MG/DL (<200); CHOLESTEROL RISK RATIO 2.45 (<5); CREATININE FOR GFR 0.97 MG/DL (0.70-1.30); GLOMERULAR FILTRATION RATE > 60.0 (>49); GLUCOSE, FASTING 156 MG/DL (74-106); POTASSIUM SERUM 4.7 MMOL/L (3.5-5.1); SODIUM LEVEL 141 MMOL/L (136-145); TOTAL PROTEIN 6.9 G/DL (5.7-8.2); TRIGLYCERIDES LEVEL 105 MG/DL (<150)
[2024-08-27 17:09] LABS: HEMOGLOBIN A1c 6.6 % (4.0-6.0)
== END ==
LOC: M PLALAB 10:37
PROVIDERS: ATTEND Nurse Practitioner Family
DX: E55.9 Vitamin D deficiency, unspecified (principal)

== ENCOUNTER 2025-02-15 08:30 | Outpatient (RCR) | payer OTHER | END 2025-02-17 | LOC: M OUTALCOH 08:30 | PROVIDERS: ATTEND Psychiatry & Neurology Psychiatry | DX: F10.10 Alcohol abuse, uncomplicated (principal); Z72.0 Tobacco use; Z03.89 Encounter for observation for other suspected diseases and conditions ruled out ==

== ENCOUNTER 2025-03-18 09:00 | Outpatient (RCR) | payer OTHER | END 2025-03-20 | LOC: M OUTALCOH 09:00 | PROVIDERS: ATTEND Psychiatry & Neurology Psychiatry | DX: F10.10 Alcohol abuse, uncomplicated (principal); Z72.0 Tobacco use ==